=== PATIENT | male | born 1985 | race Caucasian/White ===

== ENCOUNTER 2024-03-17 21:23 | Emergency (ER) | payer OTHER, SELFPAY ==
[2024-03-17 21:23] VITALS: BP 137/90; PULSE 97; RESP 17; TEMP 36.6; O2SAT 99; BMI 29.0
--- NOTE | 2024-03-17 22:12 | ED.VIS.FALL ---
HPI HPI - Fall History of Present Illness Chief Complaint: Fall Informant: patient Occured/Mechanism Occurred: Today Mechanism/Context: Yes same level fall and Yes trip Pain/Injury Pain Location: head and lower extremity (Left thigh) Quality of Pain: Sharp Worsened by: Nothing Relieved by: Water Associated Symptoms Associated Symptoms: Negative for Parasthesias, Weakness, Loss of function, Inability to ambulate, Loss of consciousness or Amnesia Narrative Narrative: Patient presents after a fall that occurred at work tonight. Patient states he tripped and fell backwards. Patient states he hit the back of his head. Patient also complains of pain in his left thigh. Patient denies any loss of consciousness. Patient states he was able to ambulate without difficulty. Patient describes his pain as sharp. Patient states nothing makes it worse. Patient states he got better when he applied water to the back of his head. Patient admits to some blurry vision. Patient admits to some mild nausea. Patient also admits to some mild neck pain. The patient denies any other injuries. PFSH PFS Home Medications ?Medication ?Instructions ?Recorded ?Last Taken ?Type NK 03/17/24 Unknown History Allergy/AdvReac Type Severity Reaction Status Date / Time No Known Allergies Allergy Verified 03/17/24 21:24 Surgical History (Updated 03/17/24 @ 22:[address] Shawn Casper DO) History of nasal surgery Social History Smoking Status: Current every day smoker tobacco type: e-cigarettes ROS ROS ED Constitutional Constitutional ED: Denies chills or fever(s) Eyes Eyes: Reports blurry vision; Denies change in vision ENT ENT ED: Denies rhinorrhea or sore throat Cardiovascular Cardiovascular: Denies chest pain or palpitations Respiratory/Chest Respiratory/Chest: Denies cough or dyspnea Gastrointestinal Gastrointestinal: Reports nausea; Denies vomiting Genitourinary Genitourinary ED: Denies dysuria or hematuria Musculoskeletal Musculoskeletal: Reports neck pain; Denies back pain Integumentary Denies abscess or rash Neurologic Neurologic: Reports headache(s); Denies weakness Allergic/Immunologic Allergic/Immunologic ED: Denies mouth swelling or urticaria EXAM Physical Exam Const Vital Signs: 03/17/24 21:23 03/17/24 22:10 Temperature 98 F Temperature Source Oral Pulse Rate 97 Respiratory Rate 17 Respiratory Effort Normal Non-Labored Respiratory Depth Normal Respiratory Pattern Normal Blood Pressure 137/90 H Blood Pressure Mean 105 Pulse Ox 99 Oxygen Delivery Method Room Air Positive well nourished and well developed General Appearance ED: well developed and NAD HEENT Reports normocephalic HEENT Narrative: There is mild tenderness over the occipital scalp. There is no edema or ecchymosis. There is no bony crepitance or step-off noted. Neck full ROM and supple Neck Narrative: There is mild cervical paraspinal muscle tenderness. There is no midline tenderness. There is no bony crepitance or step-off noted. There is full range of motion. Resp normal respiratory effort and clear to auscultation bilaterally Cardio regular rate and regular rhythm GI non-tender and non-distended Palpation: soft Neuro oriented x3, CN's II-XII intact bilaterally, moves all extremities, no focal motor deficits and no sensory deficits noted Angelica Coma Scale: document GCS findings Spontaneous Obeys Commands Oriented 15 Sensorium / Orientation: alert Motor Exam: strength 5/5 throughout Psych mental status grossly normal and thought process normal MDM MDM MDM Narrative Medical decision making narrative: Differential diagnosis includes closed head injury, intracranial bleeding, and thigh contusion. CT scan of the brain will be obtained to assess for intracranial bleeding. Radiography Diagnostic Testing: Clinical Impression(s) from Imaging Studies Brain CT 03/17/24 22:30 IMPRESSION: Scalp contusion. No evidence of acute intracranial injury. Electronically Signed: Aspen Menjivar MD at 23:29 EST Reading Location ID and State: [facility] / [place] Tel , Service support , CT scan of the brain was obtained. There is no acute intracranial abnormality. This was interpreted by the radiologist and was also independently reviewed by myself. Treatment and Re-Evaluation Narrative: Patient was advised of his findings. Patient was instructed to take Tylenol or ibuprofen as needed for headaches. Patient was instructed to follow-up with his primary care physician or the [facility] in 5 to 7 days. Patient was instructed return if worse in any way. Patient understood and was agreeable with the plan. All questions were answered. Discharge Plan Triage Chief Complaint: Fall ED Provider: Shawn Casper Dx/Rx/DC Orders Clinical Impression: Closed head injury, Fall Instructions: ED Head Injury (Adult) Prescriptions: No Action NK Stand Alone Forms: Work Status Form Primary Care Provider: Care Physician,No Primary Referrals: Care Physician,No Primary [Primary Care Provider] - [facility] [Non-Staff] - 5-7 Days Print Language: Bur[place]ian Disposition Disposition: Home, Self Care
--- NOTE | 2024-03-17 22:30 | CT_ITS ---
INDICATION: Injury/Pain FELL AND HIT BACK OF HEAD ON FLOOR,DENIES LOC EXAMINATION: CT BRAIN - CT Head or Brain W/O Contrast Injection TECHNIQUE: Multiple axial images were obtained of the head without intravenous contrast. The protocol utilizes one or more of the following dose reduction techniques: automated exposure control, adjustment of mA and/or kV according to patient size,and/or use of iterative reconstruction technique. IV Contrast dosage and agent: None. RADIATION DOSAGE (If Supplied By Facility): CTDIvol = ( 44.99 ) mGy, DLP = ( 880.47 ) mGycm COMPARISON: No relevant prior comparison study available FINDINGS: BRAIN: No acute bleed. No edema. Moreno-white matter differentiation is maintained. VENTRICLES AND SULCI: Not dilated. EXTRA-AXIAL: No hemorrhage, fluid collection, or mass. CALVARIUM / SKULL BASE: Unremarkable. FACE/SINUSES: Mucosal thickening in the maxillary sinuses. SOFT TISSUES: Mild soft tissue swelling in the posterior occipital scalp. Other: Soft tissue attenuation in the external auditory canals bilaterally likely cerumen. CT/Brain/Head without Contrast IMPRESSION: Scalp contusion. No evidence of acute intracranial injury. Electronically Signed: Aspen Menjivar MD at 23:29 [facility] ,
[2024-03-18 00:01] VITALS: BP 137/90; PULSE 95; RESP 14; TEMP 36.6; O2SAT 100
== END 2024-03-18 00:01 | disposition home or self-care (01) ==
PROVIDERS: Emergency Provider Emergency Medicine; Visit Provider Emergency Medicine
DX: S00.03XA Contusion of scalp, initial encounter (principal); W18.30XA Fall on same level, unspecified, initial encounter; M79.652 Pain in left thigh; F17.210 Nicotine dependence, cigarettes, uncomplicated; Y93.89 Activity, other specified; Y99.0 Civilian activity done for income or pay; Y92.89 Other specified places as the place of occurrence of the external cause
CPT/HCPCS: 70450; 99282